=== PATIENT | female | born 1940 ===

== ENCOUNTER 2019-03-28 18:13 | Inpatient (IN) | payer MEDICARE ==
[~2019-03-28] VITALS: Ht 160 cm; Wt 54.4 kg
--- NOTE | 2019-03-28 20:05 | NUR ---
RECEIVED TO ROOM VIA EMS FROM [facility]. PATIENT ALERT,NON VERBAL. GRUNTS AND FACIAL GRIMMICING NOTED. NO RESP DISTRESS NOTED. CONTRACTURES NOTED TO BILATERAL ARMS AND HANDS. FOOT DROP NOTED TO BILATERAL FEET.HEELS BRIDGED.SL NOTED TO RIGHT FOOT WITHOUT REDNESS OR EDEMA NOTED. PRESSURE SORE TO LEFT BUTTOCKS AND COCCYX.DRESSING INTACT.SR UP.CL IN REACH.
[2019-03-28] MEDS ORDERED: DULCOLAX10 MG/SUPP (21:46)
[2019-03-28 22:44] VITALS: BP 107/58; BMI 21.3
[2019-03-29] VITALS (7 sets, daily range): BP systolic 108–142; BP diastolic 56–82; Ht 160 cm; Wt 54.4 kg
[2019-03-29] MEDS ORDERED: BUSPAR 15 MG TA15 MG PO (02:09)
[2019-03-29] MEDS ORDERED: BUSPAR5 MG PO (02:11)
[2019-03-29] MEDS ORDERED: FERROUS SULFAT325 MG PO (02:13)
[2019-03-29] MEDS ORDERED: LEVOXYL100 MCG PO (02:14)
[2019-03-29] MEDS ORDERED: MILK OF MAGNESI30 ML PO (02:14)
[2019-03-29] MEDS ORDERED: REMERON15 MG PO (02:15)
[2019-03-29] MEDS ORDERED: SENNA LAXATIVE8.6 MG PO (02:17)
[2019-03-29] MEDS ORDERED: ZOCOR20 MG PO (02:18)
[2019-03-29] MEDS ORDERED: VITAMIN D31000 UNI2 PO (02:19)
[2019-03-29] MEDS ORDERED: SODIUM BICARBO650 MG PO (02:22)
[2019-03-29] MEDS ORDERED: MEGACE400 MG/10 PO (02:22)
[2019-03-29 05:41] LABS: APPEARANCE HAZY (CLEAR); BILIRUBIN NEGATIVE (NEGATIVE); COLOR YELLOW (YELLOW); GLUCOSE NEGATIVE (NEGATIVE); KETONE NEGATIVE (NEGATIVE); NITRITE NEGATIVE (NEGATIVE); PROTEIN NEGATIVE (NEGATIVE); SPECIFIC GRAVITY 1.015 (1.005-1.020); UROBILINOGEN NORMAL (NORMAL)
[2019-03-29 05:42] LABS: BACTERIA MANY /hpf (NONE SEEN); EPITHELIAL CELLS 0-5 /hpf (0-5); RED CELLS - URINE 0-5 /hpf (0-5); YEAST >1+ /hpf (NONE SEEN)
[2019-03-29 06:44] LABS: BASOPHILS 0.9 % (0-2); EOSINOPHILS 3.4 % (0-7); HEMATOCRIT 39.6 % (36.0-48.0); IMMATURE GRANULOCYTES 3.6 % (0-5); LYMPHOCYTES 30.7 % (15-50); MCHC 32.8 g/dL (31.0-37.0); MCV 91.2 fL (80.0-100.0); MEAN PLATELET VOLUME 13.2 fL (7.4-10.4); MONOCYTES 9.1 % (2-11); NEUTROPHILS 52.3 % (40-80); PLATELET COUNT 234 10x3/uL (130-400); RBC 4.34 10x6/uL (4.00-5.40); RDW 14.1 % (11.5-14.5); WBC 12.3 10x3/uL (4.8-10.8)
[2019-03-29 07:18] LABS: ALBUMIN 1.9 g/dL (3.4-5.0); BILIRUBIN - TOTAL 0.33 mg/dL (0.2-1.3); CALCIUM 8.4 mg/dL (8.5-10.1); CARBON DIOXIDE 24.3 mmol/L (21.0-32.0); MAGNESIUM - SERUM 1.6 mg/dL (1.8-2.4); PHOSPHOROUS 1.9 mg/dL (2.5-4.9); POTASSIUM - SERUM 4.3 mmol/L (3.5-5.1); PROTEIN - SERUM 5.1 g/dL (6.4-8.2); VANCOMYCIN - RANDOM 25.7 ug/mL (10.0-20.0)
--- NOTE | 2019-03-29 07:40 | NUR ---
AWAKE AND ALERT. APPEARS ORIENTED TO SELF. DIFFICULT TO ASSESS ORIENTATION PATIEN IS NON VERBAL. LUNGS ARE CLEAR BILATERALLY, NO COUGH NOTED. SKIN IS INTACT WITHOUT REDNESS EXCEPT 2 DECUBS TO COCCYX AND BUTTOCK. BOTH HAVE DRY INTACT DRESSINGS IN PLACE. AMEZQUITA PATENT WITH CLEAR YELLOW URINE. NO NEEDS NOTED. REPOSTIONED FOR COMFORT. HANDS ARE CONTRACTURED AND FOOT DROP NOTED TO BILATERAL LE. IV TO RIGHT FOOT IS PATENT WIHOUT REDNESS AT INSERTION SITE.
--- NOTE | 2019-03-29 12:35 | NUR ---
OFF UNIT VIA BED FOR PROCEDURE. AT BEDSIDE.
--- NOTE | 2019-03-29 13:57 | NUR ---
RETURNED FROM PROCEDURE. DRESSING AROUND PEG IS DRY AND INTACT.
--- NOTE | 2019-03-29 14:00 | NUR ---
VSS. NO C/O AT THIS TIME.
--- NOTE | 2019-03-29 16:00 | NUR ---
VSS. NO NEEDS NOTED. FAMILY HAS LEFT.
--- NOTE | 2019-03-29 16:20 | NUR ---
Pt was admitted from [place]. She has hx of CVA, dementia and failure to thrive. She has a stage 3 pressure ulcer on coccyx measuring 3cm x 1cm x 0.5cm Stage 2 pressure injury on left buttocks measuring 3cm x 3cm x 0.3cm Stage 2 pressure injury on right buttocks measuring 5cm x 2cm x 0.2cm Stage 1 pressure injuries on bilateral heels (non-blanchable red) Right met head (lateral foot) 2cm x 1cm x black scab. Current tx is mepilex border dressings on bottom, turning q 2 hours and floating heels. Recommend continuing the above. Wound care will continue monitoring.
--- NOTE | 2019-03-29 17:00 | NUR ---
TF UP AT THIS TIME VIA PUMP AT 20CC HOUR. HOB UP 45 DEGREES. NO NEEDS NOTED.
--- NOTE | 2019-03-29 21:00 | NUR ---
LYING QUEITLY WITH EYES OPEN.RESP EVEN AND UNALBORED. NO DISTRESS NOTED. IV INFUSING TO RIGHT FOOT WITHOUT REDNESS OR EDEMA NOTED. BILATERAL ARMS AND HANDS CONTRACTED. FOOT DROP NOTED TO BILATERAL FEET. AMEZQUITA PATENT AND DRAINING YELLOW URINE. PEG TUBE PATENT WITH JEVITIY INFUSING AT 20 CC/HR. TOLERATING FEEDING WELL. TURNED AND POSITIONED FOR COMFORT. PATIENT IS NON VERBAL.CL IN REACH
[2019-03-30 00:36] VITALS: BP 141/61
--- NOTE | 2019-03-30 02:42 | NUR ---
I have reviewed this patient and I concur with the Shift Assessment completed by the Licensed Practical Nurse today this shift.
[2019-03-30 04:55] VITALS: BP 138/64
--- NOTE | 2019-03-30 05:12 | NUR ---
TURNED AND POSITIONED Q 2 HOURS. HEELS BRIDGED. NO DISTRESS NOTED.
[2019-03-30 07:05] LABS: ALBUMIN 1.8 g/dL (3.4-5.0); ANION GAP 11.8 mmol/L (8-16); BILIRUBIN - TOTAL 0.28 mg/dL (0.2-1.3); CALCIUM 8.4 mg/dL (8.5-10.1); CARBON DIOXIDE 22.8 mmol/L (21.0-32.0); CREATININE - SERUM 1.2 mg/dL (0.6-1.3); MAGNESIUM - SERUM 1.7 mg/dL (1.8-2.4); PHOSPHOROUS 1.9 mg/dL (2.5-4.9); PROTEIN - SERUM 5.1 g/dL (6.4-8.2); VANCOMYCIN - RANDOM 19.5 ug/mL (10.0-20.0)
[2019-03-30 07:06] LABS: POTASSIUM - SERUM 3.6 mmol/L (3.5-5.1)
--- NOTE | 2019-03-30 07:36 | NUR ---
ROUSES TO VERBAL AND TACTILE STIMULATION. DIFFICULT TO ASSESS ORIENTATION PATIENT IS NON VERBAL. LUNGS ARE CLEAR BILATERALLY, NO COUGH NOTED. SKIN IS INTACT EXCEPT DECUBS TO COCCYX AND BUTTOCKS, WHICH HAVE DRY INTACT DRESSINGS IN PLACE. IV TO RIGHT FOOT IS PATETN WITHOUT REDNESS AT INSERTION SITE. PEG PATENT WITH JEVITY 1.2 AT 30 CC HOUR VIA PUMP. AMEZQUITA PATENT WITH CLEAR YELLOW URINE. HEELS BRIDGED. NO NEEDS NOTED.
[2019-03-30 07:37] LABS: HEMATOCRIT 37.3 % (36.0-48.0); HEMOGLOBIN 12.3 g/dL (12-16); MEAN PLATELET VOLUME 12.9 fL (7.4-10.4); PLATELET COUNT 251 10x3/uL (130-400); RDW 14.4 % (11.5-14.5); WBC 10.6 10x3/uL (4.8-10.8)
--- NOTE | 2019-03-30 08:01 | NUR ---
20CC RESIDUAL AT THIS TIME. RATE INCREASED TO 40MG HOUR VIA PUMP.
[2019-03-30 08:04] VITALS: BP 85/49
[2019-03-30 08:18] LABS: EOSINOPHILS 2 % (0-7); LYMPHOCYTES 38 % (15-50); MONOCYTES 12 % (2-11); NEUTROPHILS 48 % (40-80); PLATELET ESTIMATE NORMAL
--- NOTE | 2019-03-30 10:00 | NUR ---
FIRST STEP OVERLAY PLACED ON BED. NO CHANGES NOTED.
--- NOTE | 2019-03-30 10:28 | NUR ---
NUTRITION F/U CHART REVIEWED. PT TOLERATING JEVITY 1.2 MARGARITA AT 40 CC/HR WITH GOAL RATE 55 CC/HR. WILL CONTINUE TO MONITOR. RD FOLLOWING
--- NOTE | 2019-03-30 12:47 | NUR ---
NUTRITION F/U AFTER FURTHER REVIEW, DECREASED TUBE FEED GOAL RATE TO 50 CC/HR. ENTERED NURSING MESSAGE AND WILL SPEAK WITH NURSING WELL. RD FOLLOWING
[2019-03-30 12:50] VITALS: BP 90/49
--- NOTE | 2019-03-30 15:45 | MORECARE ---
CASE MANAGEMENT DISCHARGE SUMMARY PATIENT: QING ELLIS UNIT: [id number] ADM DATE: 03/28/19 AGE: 79 : 42 SEX: F ROOM/BED: D.2205 AUTHOR: JAYASHREE DREW PHYSICIAN: REFERRING PHYSICIAN: DORIS GOLDEN MD DATE OF SERVICE: 03/30/19 Discharge Plan Patient Name: QING ELLIS Facility: [facility]:[place] : 1940 Planned Disposition: Nursing Facility COSMO Cert Anticipated Discharge Date: Discharge Date: Expected LOS: Initial Reviewer: [email or web address] Initial Review Date: 03/28/2019 Generated: 03/30/19 4:44 pm Comments DCP- Discharge Planning Updated by [email or web address]: Anjali Mancilla on 03/30/19 2:[address] PATIENT IS NONVERBAL, SHE IS A SNF RESIDENT AT [facility] IS THE CONTACT [phone] Patient Name: QING ELLIS Page [id number] at 1545 All edits/amendments must be made on the electronic document DICTATION DATE: 03/30/191543 EXECUTIVE VICE PRESIDENT AND CHIEF OPERATING OFFICER: MARCUS 03/30/191543 RPT#: [id number] DC DATE: STATUS: ADM IN [facility] [address] [place] [address] END OF REPORT
--- NOTE | 2019-03-30 16:00 | NUR ---
20 CC RESIDUAL. TUBE FEEDINGS INCREASED TO GOAL RATE OF 50CC HOUR VIA PUMP.REPOSITIONED IN BED FOR COMFORT.
[2019-03-30 16:42] VITALS: BP 149/73
--- NOTE | 2019-03-30 18:34 | NUR ---
HOB UP 45 DEGREES. NO CHANGES NOTED. DENIES NEEDS.
--- NOTE | 2019-03-30 19:15 | NUR ---
PT ALERT WITH EYES OPEN WHEN ENTERING THE ROOM. PT NON VERBAL. PT UNABLE TO MOVE OR AMBULATE. BOTH ARMS ARE CONTRACTED. SEVERE FOOT DROP BILATERALLY. IV TO THE RIGHT FOOT @ 30 ML PER HOUR. PT HAS AMEZQUITA CATHETER DRAINING LIGHT YELLOW CLEAR URINE. NO DISTRESS NOTED AT THIS TIME. HOB AT 45 DEGREE ANGLE. ORAL CARE PROVIDED. PEG TUBE IS CLEAN AND DRY. 40 CC OF RESIDUAL AT THIS TIME. RECEIVING JEVITY 1.2. BED LOCKED AND LOWERED. CONTINUAL MONITORING. CPOC.
[2019-03-30 20:00] VITALS: BP 126/42
[2019-03-31] VITALS: BP 118/40
--- NOTE | 2019-03-31 01:43 | NUR ---
RESTING WITH EYES CLOSED. NO DISTRESS NOTED.
[2019-03-31 04:00] VITALS: BP 141/657
[2019-03-31 05:30] LABS: BASOPHILS 0.3 % (0-2); EOSINOPHILS 3.2 % (0-7); HEMATOCRIT 36.6 % (36.0-48.0); HEMOGLOBIN 12.1 g/dL (12-16); IMMATURE GRANULOCYTES 0.8 % (0-5); LYMPHOCYTES 24.4 % (15-50); MCHC 33.1 g/dL (31.0-37.0); MCV 90.8 fL (80.0-100.0); MEAN PLATELET VOLUME 13.5 fL (7.4-10.4); MONOCYTES 9.5 % (2-11); NEUTROPHILS 61.8 % (40-80); PLATELET COUNT 219 10x3/uL (130-400); RBC 4.03 10x6/uL (4.00-5.40); RDW 14.6 % (11.5-14.5); WBC 12.8 10x3/uL (4.8-10.8)
[2019-03-31 05:52] LABS: ALBUMIN 1.9 g/dL (3.4-5.0); ANION GAP 12.1 mmol/L (8-16); BILIRUBIN - TOTAL 0.32 mg/dL (0.2-1.3); CALCIUM 7.8 mg/dL (8.5-10.1); CARBON DIOXIDE 24.8 mmol/L (21.0-32.0); MAGNESIUM - SERUM 1.9 mg/dL (1.8-2.4); PHOSPHOROUS 1.8 mg/dL (2.5-4.9); POTASSIUM - SERUM 3.9 mmol/L (3.5-5.1); VANCOMYCIN - RANDOM 21.4 ug/mL (10.0-20.0)
--- NOTE | 2019-03-31 06:42 | NUR ---
I have reviewed this patient and I concur with the Shift Assessment completed by the Licensed Practical Nurse today this shift.
[2019-03-31 08:13] VITALS: BP 103/39
--- NOTE | 2019-03-31 08:15 | NUR ---
PATIENT IN BED WITH IV INTACT. NO COMPLAINTS OR SIGNS OF DISTRESS. TF INFUSING. IV INFUSING. CALL LIGHT WITHIN REACH.
--- NOTE | 2019-03-31 11:00 | NUR ---
PATIENT CHANGED AND TURNED AT THIS TIME. NO OCMPLAINTS OR SIGNS OF DISTRESS. FAMILY AT BEDSIDE. CALL LIGHT WITHIN REACH.
[2019-03-31 13:21] VITALS: BP 120/33
--- NOTE | 2019-03-31 15:00 | NUR ---
PATIENT TURNED AND CHANGED. NO COMPLAINTS. IV INTACT. CALL LIGHT WITHIN REACH.
[2019-03-31 16:11] VITALS: BP 115/43
--- NOTE | 2019-03-31 18:45 | NUR ---
PATIENT IN BED WITH IV INTACT. TF INFUSING. AMEZQUITA INTACT. NO COMPLAINTS. CALL LIGHT WITHIN REACH. BA ON.
[2019-03-31 19:55] VITALS: BP 117/39; BP 120/58
--- NOTE | 2019-03-31 19:56 | NUR ---
PATIENT IN BED RESTING WITH NO S/S OF DISTRESS. JEVITY 1.[address] VIA PUMP TO PEG-TUB HOB 30 DEGREES. FOOT KALIE[ BILATERAL F/C IN PLACE WITH URINE TO BAG. FRIST STEP OVERLAY IN PLACE.
[2019-04-01] VITALS (7 sets, daily range): BP systolic 100–118; BP diastolic 34–55
[2019-04-01 07:11] LABS: BASOPHILS 0.5 % (0-2); EOSINOPHILS 4.5 % (0-7); HEMATOCRIT 36.5 % (36.0-48.0); HEMOGLOBIN 12.1 g/dL (12-16); IMMATURE GRANULOCYTES 0.7 % (0-5); LYMPHOCYTES 23.1 % (15-50); MCH 29.9 pg (26.0-34.0); MCHC 33.2 g/dL (31.0-37.0); MCV 90.1 fL (80.0-100.0); MEAN PLATELET VOLUME 12.1 fL (7.4-10.4); MONOCYTES 11.9 % (2-11); NEUTROPHILS 59.3 % (40-80); PLATELET COUNT 212 10x3/uL (130-400); RBC 4.05 10x6/uL (4.00-5.40); RDW 15.1 % (11.5-14.5); WBC 12.8 10x3/uL (4.8-10.8)
[2019-04-01 07:40] LABS: ALBUMIN 1.7 g/dL (3.4-5.0); ANION GAP 9.3 mmol/L (8-16); BILIRUBIN - TOTAL 0.2 mg/dL (0.2-1.3); CALCIUM 7.6 mg/dL (8.5-10.1); CARBON DIOXIDE 25.2 mmol/L (21.0-32.0); CREATININE - SERUM 0.8 mg/dL (0.6-1.3); MAGNESIUM - SERUM 2.1 mg/dL (1.8-2.4); PROTEIN - SERUM 4.8 g/dL (6.4-8.2)
[2019-04-01 07:42] LABS: PHOSPHOROUS 1.5 mg/dL (2.5-4.9); POTASSIUM - SERUM 4.5 mmol/L (3.5-5.1)
--- NOTE | 2019-04-01 09:15 | NUR ---
PATIENT IV INFILTRATED. REMOVED WITH CATH INTACT. RESTARTED IN RIGHT FOOT ON OTHER SIDE. TOLERATED WITH SMALL AMOUNT OF PAIN. HEEL PROTECTOR THROWN AWAY DUE TO BEING DIRTY AND WET. DUODERM DRESSING PLACED ON BACK OF HEEL TO KEEP PROTECTED. PEG AND AMEZQUITA INTACT. CALL LIGHT WITHIN REACH.
--- NOTE | 2019-04-01 18:25 | NUR ---
PATIENT CHANGED AGAIN AT THIS TIME. BM LIQUID AND DARK. DRESSING PLACED TO COCCYX AND BUTTOCK SORES. SORES SMALL WITH NO DRAINAGE. IV IN RIGHT FOOT INTACT. PATIENT HAS NO COMPLAINTS OR SIGNS OF DISTRESS. PEG AND AMEZQUITA INTACT. CALL LIGHT WITHIN REACH.
--- NOTE | 2019-04-01 19:55 | NUR ---
PATINT IN BED WITH PEG -TUB IN PLACE AND PATEN WITH JEVITY 1.5 MARGARITA AT 50CC/HR AND H2O AT 20CC/HR, HOB AT 30 DEGRGES. BILATERAL FOOT IV TO RIGHT FOOT WITH NS AT 30 CHECKED OFTEN FOR NEEDS AND SAFETY. NONVERBALE.
[2019-04-02 04:00] VITALS: BP 109/34
[2019-04-02 05:39] LABS: BASOPHILS 0.6 % (0-2); EOSINOPHILS 3.1 % (0-7); HEMOGLOBIN 10.8 g/dL (12-16); IMMATURE GRANULOCYTES 0.8 % (0-5); LYMPHOCYTES 20.4 % (15-50); MCH 29.6 pg (26.0-34.0); MCHC 32.7 g/dL (31.0-37.0); MCV 90.4 fL (80.0-100.0); MEAN PLATELET VOLUME 12.8 fL (7.4-10.4); MONOCYTES 9.8 % (2-11); NEUTROPHILS 65.3 % (40-80); RBC 3.65 10x6/uL (4.00-5.40); RDW 15.1 % (11.5-14.5); WBC 14.4 10x3/uL (4.8-10.8)
[2019-04-02 06:02] LABS: PLATELET COUNT 268 10x3/uL (130-400)
[2019-04-02 06:04] LABS: ALBUMIN 1.6 g/dL (3.4-5.0); ANION GAP 8.8 mmol/L (8-16); BILIRUBIN - TOTAL 0.31 mg/dL (0.2-1.3); CALCIUM 7.4 mg/dL (8.5-10.1); CARBON DIOXIDE 28.3 mmol/L (21.0-32.0); MAGNESIUM - SERUM 2.1 mg/dL (1.8-2.4); POTASSIUM - SERUM 4.1 mmol/L (3.5-5.1)
[2019-04-02 06:06] LABS: PHOSPHOROUS 1.3 mg/dL (2.5-4.9)
--- NOTE | 2019-04-02 06:30 | NUR ---
LAB CALLED WITH PHOSPHORUS LEVEL OF 1.3 CRITICAL LOW PT ON POTOCOL AT 1.3 CALLS FOR 20MM OVER 4 HOURS. PHARAMACY CALLED AND WILL MIX AND DELIVER TO FLOOR. 04-01-19 WAS 1.5 AND 1.8 ON 03-31-19.
--- NOTE | 2019-04-02 07:30 | NUR ---
ROUSES TO TACTILE AND VERBAL STIMULATION. RESPONDS TO NAME. PATIENT IS NON VERBAL AND DIFFICULT TO ASSESS ORIENTATION. LUNGS ARE CLEAR BILATERALLY, NO COUGH NOTED. SKIN IS INTACT EXCEPT STAGE 3 TO COCCYX AND STAGE 2 TO LEFT BUTTOCK. BILATERAL FOOT DROP NOTED. HEELS DON NOT JANNY, UP ON PILLOWS. ON FIRST STEP OVERLAY. AMEZQUITA PATETN WTIH CLEAR YELLOW URINE. IV TO RIGHT FOOT IS PATETN WITHOUT REDNESS AT INSERTION SITE. NO NEEDS NOTED. REPOSITIONED IN BED FOR COMFORT. HOB UP 40 DEGREES.
[2019-04-02 08:00] VITALS: BP 98/40
--- NOTE | 2019-04-02 10:13 | NUR ---
RESTING QUIETLY IN BED WITH EYES CLOSED.
[2019-04-02 12:32] VITALS: BP 98/33
--- NOTE | 2019-04-02 13:00 | NUR ---
Nutrition follow-up: PEG tube placed and Jevity 1.2 sherita infusing @ 50 ml/hr Labs reviewed Wt: 119# Pt tolerating TF at this time. Pt with loose diarrhea; receiving MOM zacky Recommend discontinuing MOM due to loose stools RDN following.
--- NOTE | 2019-04-02 15:00 | NUR ---
INCONTINENT OF LARGE AMOUNT OF LOOSE WATERY STOOL. SKIN CARE PER STAFF. LINENS CHANGED. REPOSITIONED IN BED FOR COMFORT.
[2019-04-02 17:17] VITALS: BP 106/37
--- NOTE | 2019-04-02 18:48 | NUR ---
NO CHANGES AT THIS TIME. NO NEEDS. NOTED.
[2019-04-02 20:28] VITALS: BP 107/53
[2019-04-03 01:17] VITALS: BP 97/40
--- NOTE | 2019-04-03 01:49 | NUR ---
2000)REC'D.IN BED HOB UP 35 DEGREES.TURNED TO LEFT SIDE INCONTINENT OF MODERATE AMT GREENISH COLORED BM. COMPLETE BATH GIVEN.REDNESS TO COCCYX WITH NICKEL SIZE AREA RIGHT UPPER BUTTOCKS WITH APPROX 2MM SIZE SCAB CENTER.BUTT PASTE APPLIED.TURNED TO LEFT SIDE WITH PILLOW TO BACK FOR SUPPORT.HOB REMAINS ELEVATED. WILL CONTINUE TO MONITOR FOR ANY CHGES.AND FOLLOW CURRENT PLAN OF CARE.
[2019-04-03 04:59] VITALS: BP 108/39
[2019-04-03 06:28] LABS: BASOPHILS 0.6 % (0-2); EOSINOPHILS 3.5 % (0-7); HEMATOCRIT 32.2 % (36.0-48.0); HEMOGLOBIN 10.7 g/dL (12-16); IMMATURE GRANULOCYTES 0.8 % (0-5); LYMPHOCYTES 26.7 % (15-50); MCH 30.1 pg (26.0-34.0); MCHC 33.2 g/dL (31.0-37.0); MCV 90.4 fL (80.0-100.0); MEAN PLATELET VOLUME 12.9 fL (7.4-10.4); MONOCYTES 12.1 % (2-11); NEUTROPHILS 56.3 % (40-80); PLATELET COUNT 268 10x3/uL (130-400); RBC 3.56 10x6/uL (4.00-5.40); RDW 15.4 % (11.5-14.5); WBC 12.6 10x3/uL (4.8-10.8)
[2019-04-03 06:47] LABS: ALBUMIN 1.5 g/dL (3.4-5.0); ANION GAP 5.8 mmol/L (8-16); BILIRUBIN - TOTAL 0.23 mg/dL (0.2-1.3); CALCIUM 7.6 mg/dL (8.5-10.1); CARBON DIOXIDE 28.4 mmol/L (21.0-32.0); CREATININE - SERUM 0.9 mg/dL (0.6-1.3); POTASSIUM - SERUM 4.2 mmol/L (3.5-5.1); PROTEIN - SERUM 5.1 g/dL (6.4-8.2)
--- NOTE | 2019-04-03 07:29 | NUR ---
I have reviewed this patient and I concur with the Shift Assessment completed by the Licensed Practical Nurse today this shift.
--- NOTE | 2019-04-03 07:49 | NUR ---
ROUSES TO VERBAL AND TACTILE STIMULATION. PATIENT IS NON VERBAL AND DIFFICULT TO ASSESS ORIENTATION. LUNGS ARE CLEAR WITH SOME FAINT WHEEZES NOTED TO RIGHT LOWER LOBE. NO COUGH NOTED. SKIN IS INTACT WTIHOUT REDNESS EXCEPT STAGE 3 TO COCCYX AND STAGE 2 TO BUTTOCK WITH CLEAN DRY DRESSINGS IN PLACE. AMEZQUITA PATETN WTIH CLEAR YELLOW URINE. IV TO RIGHT FOOT IS PATENT WITHOUT REDNESS AT INSERTION SITE. NO NEEDS NOTED. ON FIRST STEP OVERLAY.
[2019-04-03 08:07] VITALS: BP 108/36
--- NOTE | 2019-04-03 11:54 | MORECARE ---
CASE MANAGEMENT DISCHARGE SUMMARY PATIENT: QING ELLIS UNIT: [id number] ADM DATE: 03/28/19 AGE: 79 : 42 SEX: F ROOM/BED: D.2205 AUTHOR: JAYASHREE DREW PHYSICIAN: REFERRING PHYSICIAN: DORIS GOLDEN MD DATE OF SERVICE: 04/03/19 Discharge Plan Patient Name: QING ELLIS Facility: [facility]:[place] : 1940 Planned Disposition: Nursing Facility COSMO Cert Anticipated Discharge Date: Discharge Date: Expected LOS: Initial Reviewer: [email or web address] Initial Review Date: 03/28/2019 Generated: 04/03/19 12:53 pm Comments DCP- Discharge Planning Updated by [email or web address]: Anjali Mancilla on 04/03/19 10:[address] spoke with collins at [facility] to let her know that we anticipate patient to be dc back tomorrow cm to follow and assist with dc DCP- Discharge Planning Updated by [email or web address]: Anjali Mancilla on 03/30/19 2:[address] PATIENT IS NONVERBAL, SHE IS A FPC RESIDENT AT [facility] [place] IS THE CONTACT [phone] Last DP export: 03/30/19 2:45 pm Patient Name: QING ELLIS Page [phone] at 1154 All edits/amendments must be made on the electronic document DICTATION DATE: 04/03/19 115 FOLLOW UP SPECIALIST: MARCUS 04/03/19 1153 RPT#: [id number] DC DATE: STATUS: ADM IN [facility] [address] [place] [address] END OF REPORT
[2019-04-03 13:27] VITALS: BP 121/50
[2019-04-03 16:10] VITALS: BP 118/62
--- NOTE | 2019-04-03 18:43 | NUR ---
RESTING QUIETLY IN BED. NO NEEDS NOTED. NO CHANGES NOTED.
--- NOTE | 2019-04-03 21:00 | NUR ---
LYING QUEITLY WITH NO DISTRESS NOTED. PATIENT IS NONVERBAL. NO FACIAL GRIMMICING NOTED. RESP UNLABOERD. IV INFUSING TO RIGHT FOOT WITHOUT REDNESS OR EDEMA NOTED AMEZQUITA PATENT AND DRAINING CLEAR YELLOW URINE. TURNED AND POSITIONED FOR COMFORT.
[2019-04-03 21:44] VITALS: BP 106/36
[2019-04-04 01:11] VITALS: BP 130/59
--- NOTE | 2019-04-04 02:00 | NUR ---
I have reviewed this patient and I concur with the Shift Assessment completed by the Licensed Practical Nurse today this shift.
[2019-04-04 05:18] VITALS: BP 114/89
[2019-04-04 07:08] LABS: BASOPHILS 1.2 % (0-2); EOSINOPHILS 4.2 % (0-7); HEMATOCRIT 33.8 % (36.0-48.0); IMMATURE GRANULOCYTES 0.9 % (0-5); LYMPHOCYTES 33.9 % (15-50); MCH 29.6 pg (26.0-34.0); MCHC 32.5 g/dL (31.0-37.0); MCV 90.9 fL (80.0-100.0); MEAN PLATELET VOLUME 12.9 fL (7.4-10.4); MONOCYTES 10.5 % (2-11); NEUTROPHILS 49.3 % (40-80); PLATELET COUNT 275 10x3/uL (130-400); RBC 3.72 10x6/uL (4.00-5.40); RDW 15.7 % (11.5-14.5); WBC 10.8 10x3/uL (4.8-10.8)
[2019-04-04 07:37] LABS: ALBUMIN 1.7 g/dL (3.4-5.0); ANION GAP 11.4 mmol/L (8-16); BILIRUBIN - TOTAL 0.21 mg/dL (0.2-1.3); CALCIUM 8.1 mg/dL (8.5-10.1); CARBON DIOXIDE 26.3 mmol/L (21.0-32.0); CREATININE - SERUM 0.9 mg/dL (0.6-1.3); PHOSPHOROUS 2.6 mg/dL (2.5-4.9); POTASSIUM - SERUM 4.7 mmol/L (3.5-5.1); PROTEIN - SERUM 5.5 g/dL (6.4-8.2)
--- NOTE | 2019-04-04 07:40 | NUR ---
PT RESTING IN BED. CHEST RISING AND FALLING. NO S/S OF ACUTE DISTRESS. CL IN PLACE.
[2019-04-04 09:03] VITALS: BP 107/55
[2019-04-04] MEDS ORDERED: CLEOCIN HCL300 MG PO (10:07)
--- NOTE | 2019-04-04 12:24 | MORECARE ---
CASE MANAGEMENT DISCHARGE SUMMARY PATIENT: QING ELLIS UNIT: [id number] ADM DATE: 03/28/19 AGE: 79 : 42 SEX: F ROOM/BED: D.2205 AUTHOR: JAYASHREE DREW PHYSICIAN: REFERRING PHYSICIAN: LOREN GOLDEN MD DATE OF SERVICE: 04/04/19 Discharge Plan Patient Name: QING ELLIS Facility: [facility]:[place] : 1940 Planned Disposition: Nursing Facility COSMO Cert Anticipated Discharge Date: Discharge Date: Expected LOS: Initial Reviewer: [email or web address] Initial Review Date: 03/28/2019 Generated: 04/04/19 1:23 pm Comments DCP- Discharge Planning Updated by [email or web address]: Anjali Mancilla on 04/04/19 11:[address] 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 I called Loren to let him know. IMM went over via phone. Patient will transport via EMS. CM to follow and assist as needed DCP- Discharge Planning Updated by [email or web address]: Anjali Mancilla on 04/03/19 10:[address] spoke with collins at [facility] to let her know that we anticipate patient to be dc back tomorrow cm to follow and assist with dc DCP- Discharge Planning Updated by [email or web address]: Anjali Mancilla on 03/30/19 2:[address] PATIENT IS NONVERBAL, SHE IS A RETIREMENT RESIDENT AT [facility] [place] IS THE CONTACT [phone] External Providers External Provider: [facility] Next Contact Date: Service Request Date: Service Type: Resolution: Reviewer: Comments: Coverage Notice Reviewer: [id number] - Anjali Mancilla Notice Issued Date-Time: 04/04/2019 12:15 Notice Type: IM Discharge Notice Notice Delivered To: Family Member Relationship to Patient: Spouse Tallow Pumper Name: loren Delivery Method: PHONE - Phone Ale Days: Prior Verbal Notification: Yes Recipient Understood Notice: Recipient Signature: Med Rec Note Co-signed by Attending: Coverage Notice Comment: Last DP export: 04/03/19 10:53 a Patient Name: QING ELLIS Page [phone] at 1224 All edits/amendments must be made on the electronic document DICTATION DATE: 04/04/191222 SEISMOGRAPH OBSERVER: MARCUS 04/04/191222 RPT#: [id number] DC DATE: STATUS: ADM IN [facility] [address] [place] [address] END OF REPORT
[2019-04-04 13:48] VITALS: BP 121/49
--- NOTE | 2019-04-04 15:15 | NUR ---
DC IV WITH TIP INTACT. PAPERWORK GIVEN TO EMT. NO S/S OF ACUTE DISTRESS. CALLED REPORT TO XIOMY EASTMAN.
--- NOTE | 2019-04-06 12:44 | MORECARE ---
CASE MANAGEMENT DISCHARGE SUMMARY PATIENT: QING ELLIS UNIT: [id number] ADM DATE: 03/28/19 AGE: 79 : 42 SEX: F ROOM/BED: D.2205 AUTHOR: JAYASHREE DREW PHYSICIAN: REFERRING PHYSICIAN: LOREN GOLDEN MD DATE OF SERVICE: 04/06/19 Discharge Plan Patient Name: QING ELLIS Facility: [facility]:[place] : 1940 Planned Disposition: Nursing Facility COSMO Cert Anticipated Discharge Date: Discharge Date: 04/04/2019 Expected LOS: 0 Initial Reviewer: [email or web address] Initial Review Date: 03/28/2019 Generated: 04/06/19 1:43 pm Comments DCP- Discharge Planning Updated by [email or web address]: Anjali Mancilla on 04/04/19 11:[address] 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 I called Loren to let him know. IMM went over via phone. Patient will transport via EMS. CM to follow and assist as needed DCP- Discharge Planning Updated by [email or web address]: Anjali Mancilla on 04/03/19 10:[address] spoke with collins at [facility] to let her know that we anticipate patient to be dc back tomorrow cm to follow and assist with dc DCP- Discharge Planning Updated by [email or web address]: Anjali Mancilla on 03/30/19 2:[address] PATIENT IS NONVERBAL, SHE IS A SNF RESIDENT AT [facility] [place] IS THE CONTACT [phone] Coverage Notice Reviewer: [email or web address] - Anjali Mancilla Notice Issued Date-Time: 04/04/2019 12:15 Notice Type: IM Discharge Notice Notice Delivered To: Family Member Relationship to Patient: Spouse Pit Manager Name: loren Delivery Method: PHONE - Phone Ale Days: Prior Verbal Notification: Yes Recipient Understood Notice: Recipient Signature: Med Rec Note Co-signed by Attending: Coverage Notice Comment: Last DP export: 04/04/19 11:24 a Patient Name: QING ELLIS Page 13879 at 1244 All edits/amendments must be made on the electronic document DICTATION DATE: 04/06/19 1243 LABORER POULTRY HATCHERY: MARCUS 04/06/19 1243 RPT#: [id number] DC DATE:04/04/19 STATUS: DIS IN [facility] [address] [facility] [place] [address] END OF REPORT
--- NOTE | 2019-04-10 10:07 | OP ---
PATIENT NAME: QING ELLIS MEDICAL RECORD: [id number] :44 LOCATION:D.MS [id number] ADMISSION DATE:03/28/19 SURGEON: VIRI COURTNEY MD DATE OF OPERATION: 03/29/2019 PREOPERATIVE DIAGNOSES: 1. Dysphagia. 2. Pneumonia. 3. Decubitus ulcers of the sacrum and heels. 4. History of cerebrovascular accident. 5. Functional disability. 6. Severe protein deficiency malnutrition. POSTOPERATIVE DIAGNOSES: 1. Dysphagia. 2. Pneumonia. 3. Decubitus ulcers of the sacrum and heels. 4. History of cerebrovascular accident. 5. Functional disability. 6. Severe protein deficiency malnutrition. PROCEDURE: PEG tube placement. SURGEON: Viri Courtney MD REPORT OF PROCEDURE: The patient's abdomen was prepped and draped in sterile fashion. An Olympus endoscope was advanced through the mouth and esophagus and into the stomach. After insufflation was obtained, an area on the stomach was found where she had had a previous PEG tube placed. A total of 5 cc of 1% lidocaine with epinephrine was infused into the surrounding tissues and then a skin incision was made with an 11 blade. An Angiocath needle was inserted through the abdominal wall into the lumen of the stomach with a wire placed through this, which was grasped by an Endo-Snare. The wire was pulled through the mouth and esophagus and affixed to the PEG tube. This resolved and pulled through the gastric lumen and abdominal wall until it rested in good position at the skin. We reinserted the scope and could see that the PEG tube was in good position, and there was no sign of any bleeding. COMPLICATIONS: None. CONDITION: Stable. ANESTHESIA: TIVA. BLOOD LOSS: Minimal. TRANSINT:[id number] Voice Confirmation ID: [id number] DOCUMENT ID: [id number] OPERATIVE REPORT [id number] QING ELLIS CHRISTIAN MD at 1007 CC: [id number] DICTATION DATE: 03/29/19 1342 DRAPERY ROD ASSEMBLER: 03/29/19 1352 DIS IN 04/04/19 [place] [address]
== END 2019-04-04 15:48 | disposition home or self-care (01) | DRG 177 ==
LOC: D.MS 18:13
PROVIDERS: Internal Medicine Nephrology; Surgery; ADMIT Family Medicine; ATTEND Family Medicine
PROC: 0DH63UZ Insertion of Feeding Device into Stomach, Percutaneous Approach (ICD-10-PCS; principal; 2019-03-29 13:00)
DX: J69.0 Pneumonitis due to inhalation of food and vomit (principal); L89.153 Pressure ulcer of sacral region, stage 3; E43 Unspecified severe protein-calorie malnutrition; N39.0 Urinary tract infection, site not specified; L89.322 Pressure ulcer of left buttock, stage 2; L89.312 Pressure ulcer of right buttock, stage 2; L89.621 Pressure ulcer of left heel, stage 1; L89.611 Pressure ulcer of right heel, stage 1; M21.372 Foot drop, left foot; M21.371 Foot drop, right foot; F03.90 Unspecified dementia, unspecified severity, without behavioral disturbance, psychotic disturbance, mood disturbance, and anxiety; Z68.21 Body mass index [BMI] 21.0-21.9, adult; R62.7 Adult failure to thrive; E03.9 Hypothyroidism, unspecified; E78.5 Hyperlipidemia, unspecified; E83.39 Other disorders of phosphorus metabolism; D64.9 Anemia, unspecified